=== PATIENT | male | born 1990 | race Caucasian/White ===

== ENCOUNTER 2019-09-21 13:20 | Day surgery (SDC) | payer MEDICAID ==
[2019-09-21] MEDS ORDERED: LIDOcaine 2% 5ml jelly ONE (13:58)
== END 2019-09-21 15:15 | disposition home or self-care (01) ==
LOC: WOUND CARE 13:20
PROVIDERS: ATTEND Nurse Practitioner
DX: E11.622 Type 2 diabetes mellitus with other skin ulcer (principal); L98.492 Non-pressure chronic ulcer of skin of other sites with fat layer exposed; L02.818 Cutaneous abscess of other sites
CPT/HCPCS: 36415; 36416; 82948; 83036; 97597; G0463

== ENCOUNTER 2019-09-25 10:55 | Day surgery (SDC) | payer MEDICAID ==
[2019-09-25] MEDS ORDERED: LIDOcaine 2% 5ml jelly ONE (12:29)
== END 2019-09-25 12:15 | disposition home or self-care (01) ==
LOC: WOUND CARE 10:55
PROVIDERS: ATTEND Nurse Practitioner Family
DX: E11.622 Type 2 diabetes mellitus with other skin ulcer (principal); L98.492 Non-pressure chronic ulcer of skin of other sites with fat layer exposed; L02.818 Cutaneous abscess of other sites
CPT/HCPCS: 36416; 82948; 93922; 93925; 97597

== ENCOUNTER 2019-10-02 10:25 | Day surgery (SDC) | payer MEDICAID ==
[2019-10-02] MEDS ORDERED: LIDOcaine 2% 5ml jelly ONE ×2 (11:00)
== END 2019-10-02 11:42 | disposition home or self-care (01) ==
LOC: WOUND CARE 10:25
PROVIDERS: ATTEND Nurse Practitioner
DX: E11.622 Type 2 diabetes mellitus with other skin ulcer (principal); L98.492 Non-pressure chronic ulcer of skin of other sites with fat layer exposed; L02.818 Cutaneous abscess of other sites
CPT/HCPCS: 36416; 82948; 97597

== ENCOUNTER 2019-10-09 10:34 | Day surgery (SDC) | payer MEDICAID ==
[2019-10-09] MEDS ORDERED: LIDOcaine 2% 5ml jelly ONE (11:06)
== END 2019-10-09 11:57 | disposition home or self-care (01) ==
LOC: WOUND CARE 10:34
PROVIDERS: ATTEND Nurse Practitioner Family
DX: E11.622 Type 2 diabetes mellitus with other skin ulcer (principal); L98.492 Non-pressure chronic ulcer of skin of other sites with fat layer exposed; Z90.49 Acquired absence of other specified parts of digestive tract; L02.818 Cutaneous abscess of other sites
CPT/HCPCS: 36416; 82948; 97597

== ENCOUNTER 2019-10-12 10:50 | Day surgery (SDC) | payer MEDICAID ==
[~2019-10-12 10:50] MED LIST: LIDOcaine 2% 5ml jelly ONE
[2019-10-12] MEDS ORDERED: LIDOcaine 2% 5ml jelly ONE (11:07)
== END 2019-10-12 12:01 | disposition home or self-care (01) ==
LOC: WOUND CARE 10:50
PROVIDERS: ATTEND Nurse Practitioner
DX: E11.622 Type 2 diabetes mellitus with other skin ulcer (principal); L98.492 Non-pressure chronic ulcer of skin of other sites with fat layer exposed; L02.818 Cutaneous abscess of other sites; Z87.891 Personal history of nicotine dependence
CPT/HCPCS: 36416; 73502; 82948; 97597

== ENCOUNTER 2019-10-19 11:24 | Day surgery (SDC) | payer MEDICAID ==
[2019-10-19] MEDS ORDERED: LIDOcaine 2% 5ml jelly ONE (11:50)
== END 2019-10-19 12:13 | disposition home or self-care (01) ==
LOC: WOUND CARE 11:24
PROVIDERS: ATTEND Nurse Practitioner
DX: E11.622 Type 2 diabetes mellitus with other skin ulcer (principal); L98.492 Non-pressure chronic ulcer of skin of other sites with fat layer exposed; L02.818 Cutaneous abscess of other sites; Z87.891 Personal history of nicotine dependence; Z90.49 Acquired absence of other specified parts of digestive tract
CPT/HCPCS: 97597

== ENCOUNTER 2019-10-24 11:00 | Day surgery (SDC) | payer MEDICAID ==
[2019-10-24] MEDS ORDERED: LIDOcaine 2% 5ml jelly ONE (11:49)
== END 2019-10-24 13:40 | disposition home or self-care (01) ==
LOC: WOUND CARE 11:00
PROVIDERS: ATTEND Nurse Practitioner
DX: E11.622 Type 2 diabetes mellitus with other skin ulcer (principal); L98.492 Non-pressure chronic ulcer of skin of other sites with fat layer exposed; L02.818 Cutaneous abscess of other sites; Z87.891 Personal history of nicotine dependence; Z90.49 Acquired absence of other specified parts of digestive tract
CPT/HCPCS: 36416; 82948; 97597

== ENCOUNTER 2019-11-02 11:07 | Day surgery (SDC) | payer MEDICAID ==
[2019-11-02] MEDS ORDERED: LIDOcaine 2% 5ml jelly ONE (11:38)
== END 2019-11-02 12:00 | disposition home or self-care (01) ==
LOC: WOUND CARE 11:07
PROVIDERS: ATTEND Nurse Practitioner
DX: E11.622 Type 2 diabetes mellitus with other skin ulcer (principal); L98.492 Non-pressure chronic ulcer of skin of other sites with fat layer exposed; L02.818 Cutaneous abscess of other sites; Z87.891 Personal history of nicotine dependence; Z90.49 Acquired absence of other specified parts of digestive tract
CPT/HCPCS: 97597

== ENCOUNTER 2019-11-09 11:05 | Day surgery (SDC) | payer MEDICAID ==
[2019-11-09] MEDS ORDERED: LIDOcaine 2% 5ml jelly ONE (12:03)
== END 2019-11-09 12:41 | disposition home or self-care (01) ==
LOC: WOUND CARE 11:05
PROVIDERS: ATTEND Nurse Practitioner
DX: E11.622 Type 2 diabetes mellitus with other skin ulcer (principal); L98.492 Non-pressure chronic ulcer of skin of other sites with fat layer exposed; L02.818 Cutaneous abscess of other sites; Z87.891 Personal history of nicotine dependence; Z90.49 Acquired absence of other specified parts of digestive tract
CPT/HCPCS: 36416; 82948; 97597

== ENCOUNTER 2019-11-23 13:30 | Day surgery (SDC) | payer MEDICAID ==
[2019-11-23] MEDS ORDERED: LIDOcaine 2% 5ml jelly ONE (13:46)
== END 2019-11-23 14:10 | disposition home or self-care (01) ==
LOC: WOUND CARE 13:30
PROVIDERS: ATTEND Nurse Practitioner
DX: E11.622 Type 2 diabetes mellitus with other skin ulcer (principal); L98.492 Non-pressure chronic ulcer of skin of other sites with fat layer exposed; L02.818 Cutaneous abscess of other sites; Z87.891 Personal history of nicotine dependence; Z90.49 Acquired absence of other specified parts of digestive tract
CPT/HCPCS: 97597

== ENCOUNTER 2019-12-14 11:00 | Day surgery (SDC) | payer MEDICAID ==
[2019-12-14] MEDS ORDERED: LIDOcaine 2% 5ml jelly ONE (12:00)
== END 2019-12-14 12:53 | disposition home or self-care (01) ==
LOC: WOUND CARE 11:00
PROVIDERS: ATTEND Nurse Practitioner
DX: E11.622 Type 2 diabetes mellitus with other skin ulcer (principal); L98.492 Non-pressure chronic ulcer of skin of other sites with fat layer exposed; L02.818 Cutaneous abscess of other sites; Z87.891 Personal history of nicotine dependence; Z90.49 Acquired absence of other specified parts of digestive tract
CPT/HCPCS: 36416; 82948; 97597

== ENCOUNTER 2019-12-21 11:14 | Day surgery (SDC) | payer MEDICAID ==
[2019-12-21] MEDS ORDERED: LIDOcaine 2% 5ml jelly ONE (13:01)
== END 2019-12-21 13:21 | disposition home or self-care (01) ==
LOC: WOUND CARE 11:14
PROVIDERS: ATTEND Nurse Practitioner
DX: E11.622 Type 2 diabetes mellitus with other skin ulcer (principal); L98.492 Non-pressure chronic ulcer of skin of other sites with fat layer exposed; L02.818 Cutaneous abscess of other sites; Z87.891 Personal history of nicotine dependence; Z90.49 Acquired absence of other specified parts of digestive tract
CPT/HCPCS: 36416; 82948; 97597

== ENCOUNTER 2019-12-28 10:40 | Day surgery (SDC) | payer MEDICAID ==
[2019-12-28] MEDS ORDERED: LIDOcaine 2% 5ml jelly ONE (11:11)
== END 2019-12-28 11:31 | disposition home or self-care (01) ==
LOC: WOUND CARE 10:40
PROVIDERS: ATTEND Nurse Practitioner
DX: E11.622 Type 2 diabetes mellitus with other skin ulcer (principal); L98.492 Non-pressure chronic ulcer of skin of other sites with fat layer exposed; L02.818 Cutaneous abscess of other sites; Z87.891 Personal history of nicotine dependence; Z90.49 Acquired absence of other specified parts of digestive tract
CPT/HCPCS: 82948; 97597

== ENCOUNTER 2020-01-04 11:32 | Day surgery (SDC) | payer MEDICAID ==
[2020-01-04] MEDS ORDERED: LIDOcaine 2% 5ml jelly ONE (12:27)
== END 2020-01-04 13:41 | disposition home or self-care (01) ==
LOC: WOUND CARE 11:32
PROVIDERS: ATTEND Nurse Practitioner
DX: E11.622 Type 2 diabetes mellitus with other skin ulcer (principal); L98.492 Non-pressure chronic ulcer of skin of other sites with fat layer exposed; L02.818 Cutaneous abscess of other sites; Z87.891 Personal history of nicotine dependence; Z90.49 Acquired absence of other specified parts of digestive tract
CPT/HCPCS: 36416; 82948; 97597

== ENCOUNTER 2020-01-11 11:40 | Day surgery (SDC) | payer MEDICAID ==
[2020-01-11] MEDS ORDERED: LIDOcaine 2% 5ml jelly ONE (12:58)
[2020-01-11] MEDS ORDERED: dextrose ORAL solution 15 GM/59 ML bottle ONE (13:09)
== END 2020-01-11 13:39 | disposition home or self-care (01) ==
LOC: WOUND CARE 11:40
PROVIDERS: ATTEND Nurse Practitioner
DX: E11.622 Type 2 diabetes mellitus with other skin ulcer (principal); L98.492 Non-pressure chronic ulcer of skin of other sites with fat layer exposed; L02.818 Cutaneous abscess of other sites; Z87.891 Personal history of nicotine dependence; Z90.49 Acquired absence of other specified parts of digestive tract
CPT/HCPCS: 36416; 82948; 97597

== ENCOUNTER 2020-01-16 11:02 | Day surgery (SDC) | payer MEDICAID ==
[2020-01-16] MEDS ORDERED: LIDOcaine 2% 5ml jelly ONE (11:38)
== END 2020-01-16 12:44 | disposition home or self-care (01) ==
LOC: WOUND CARE 11:02
PROVIDERS: ATTEND Nurse Practitioner
DX: S71.001D Unspecified open wound, right hip, subsequent encounter (principal); E11.622 Type 2 diabetes mellitus with other skin ulcer; L98.492 Non-pressure chronic ulcer of skin of other sites with fat layer exposed; L02.818 Cutaneous abscess of other sites; Z87.891 Personal history of nicotine dependence; Z90.49 Acquired absence of other specified parts of digestive tract; X58.XXXD Exposure to other specified factors, subsequent encounter
CPT/HCPCS: 36416; 82948; 97597

== ENCOUNTER 2020-01-30 11:43 | Day surgery (SDC) | payer MEDICAID ==
[2020-01-30] MEDS ORDERED: dextrose ORAL solution 15 GM/59 ML bottle ONE ×2 (12:02→12:23)
[2020-01-30] MEDS ORDERED: LIDOcaine 2% 5ml jelly ONE (12:09)
== END 2020-01-30 13:23 | disposition home or self-care (01) ==
LOC: WOUND CARE 11:43
PROVIDERS: ATTEND Nurse Practitioner
DX: S71.001D Unspecified open wound, right hip, subsequent encounter (principal); E11.622 Type 2 diabetes mellitus with other skin ulcer; L98.492 Non-pressure chronic ulcer of skin of other sites with fat layer exposed; L02.818 Cutaneous abscess of other sites; Z87.891 Personal history of nicotine dependence; Z90.49 Acquired absence of other specified parts of digestive tract; X58.XXXD Exposure to other specified factors, subsequent encounter
CPT/HCPCS: 36416; 82948; 97597

== ENCOUNTER 2020-02-06 11:40 | Day surgery (SDC) | payer MEDICAID ==
[2020-02-06] MEDS ORDERED: LIDOcaine 2% 5ml jelly ONE (11:56)
== END 2020-02-06 12:25 | disposition home or self-care (01) ==
LOC: WOUND CARE 11:40
PROVIDERS: ATTEND Nurse Practitioner
DX: S71.001D Unspecified open wound, right hip, subsequent encounter (principal); E11.622 Type 2 diabetes mellitus with other skin ulcer; L98.492 Non-pressure chronic ulcer of skin of other sites with fat layer exposed; L02.818 Cutaneous abscess of other sites; Z87.891 Personal history of nicotine dependence; Z90.49 Acquired absence of other specified parts of digestive tract; X58.XXXD Exposure to other specified factors, subsequent encounter
CPT/HCPCS: 36416; 82948; 97597

== ENCOUNTER 2020-02-13 11:23 | Outpatient (CLI) | payer MEDICAID ==
[2020-02-13] MEDS ORDERED: LIDOcaine 2% 5ml jelly ONE (11:56)
== END 2020-02-13 23:59 | disposition home or self-care (01) ==
LOC: WOUND CARE 11:23
PROVIDERS: ATTEND Nurse Practitioner
DX: S71.001D Unspecified open wound, right hip, subsequent encounter (principal); E11.622 Type 2 diabetes mellitus with other skin ulcer; L98.492 Non-pressure chronic ulcer of skin of other sites with fat layer exposed; L02.818 Cutaneous abscess of other sites; Z87.891 Personal history of nicotine dependence; Z90.49 Acquired absence of other specified parts of digestive tract; X58.XXXD Exposure to other specified factors, subsequent encounter
CPT/HCPCS: 36416; 97597

== ENCOUNTER 2020-02-20 10:55 | Outpatient (CLI) | payer MEDICAID ==
[2020-02-20] MEDS ORDERED: LIDOcaine 2% 5ml jelly ONE (11:19)
== END 2020-02-20 23:59 | disposition home or self-care (01) ==
LOC: WOUND CARE 10:55 → EDSTATUS 11:00 → WOUND CARE 23:59
PROVIDERS: ATTEND Nurse Practitioner
DX: S71.001D Unspecified open wound, right hip, subsequent encounter (principal); E11.622 Type 2 diabetes mellitus with other skin ulcer; L98.492 Non-pressure chronic ulcer of skin of other sites with fat layer exposed; L02.818 Cutaneous abscess of other sites; Z87.891 Personal history of nicotine dependence; Z90.49 Acquired absence of other specified parts of digestive tract; X58.XXXD Exposure to other specified factors, subsequent encounter
CPT/HCPCS: 11042

== ENCOUNTER 2020-02-27 11:14 | Outpatient (CLI) | payer MEDICAID ==
[2020-02-27] MEDS ORDERED: LIDOcaine 2% 5ml jelly ONE (11:42)
== END 2020-02-27 23:59 | disposition home or self-care (01) ==
LOC: WOUND CARE 11:14
PROVIDERS: ATTEND Nurse Practitioner
DX: S71.001D Unspecified open wound, right hip, subsequent encounter (principal); E11.622 Type 2 diabetes mellitus with other skin ulcer; L98.492 Non-pressure chronic ulcer of skin of other sites with fat layer exposed; L02.818 Cutaneous abscess of other sites; Z87.891 Personal history of nicotine dependence; Z90.49 Acquired absence of other specified parts of digestive tract; X58.XXXD Exposure to other specified factors, subsequent encounter
CPT/HCPCS: 11042; 36416; 82948

== ENCOUNTER 2020-03-05 10:54 | Outpatient (CLI) | payer MEDICAID ==
[2020-03-05] MEDS ORDERED: LIDOcaine 2% 5ml jelly ONE (11:12)
[2020-03-26] MEDS ORDERED: INSU100I31 SQ (14:27)
[2020-03-26] MEDS ORDERED: INSU100V30 SQ (14:27)
[2020-03-26] MEDS ORDERED: LANTUS SQ (14:28)
== END 2020-03-05 23:59 | disposition home or self-care (01) ==
LOC: WOUND CARE 10:54 → EDSTATUS 11:00 → WOUND CARE 23:59
PROVIDERS: ATTEND Nurse Practitioner
DX: S71.001D Unspecified open wound, right hip, subsequent encounter (principal); E11.622 Type 2 diabetes mellitus with other skin ulcer; L98.492 Non-pressure chronic ulcer of skin of other sites with fat layer exposed; L02.818 Cutaneous abscess of other sites; Z87.891 Personal history of nicotine dependence; Z90.49 Acquired absence of other specified parts of digestive tract; X58.XXXD Exposure to other specified factors, subsequent encounter
CPT/HCPCS: 11042; 36416; 82948

== ENCOUNTER 2020-03-12 10:58 | Outpatient (CLI) | payer MEDICAID ==
[2020-03-12] MEDS ORDERED: LIDOcaine 2% 5ml jelly ONE (11:06)
[2020-03-26] MEDS ORDERED: INSU100V30 SQ (14:27)
[2020-03-26] MEDS ORDERED: INSU100I31 SQ (14:27)
[2020-03-26] MEDS ORDERED: LANTUS SQ (14:28)
== END 2020-03-12 23:59 | disposition home or self-care (01) ==
LOC: WOUND CARE 10:58 → EDSTATUS 11:00 → WOUND CARE 23:59
PROVIDERS: ATTEND Nurse Practitioner
DX: S71.001D Unspecified open wound, right hip, subsequent encounter (principal); E11.622 Type 2 diabetes mellitus with other skin ulcer; L98.492 Non-pressure chronic ulcer of skin of other sites with fat layer exposed; L02.818 Cutaneous abscess of other sites; Z87.891 Personal history of nicotine dependence; Z90.49 Acquired absence of other specified parts of digestive tract; X58.XXXD Exposure to other specified factors, subsequent encounter
CPT/HCPCS: 11042

== ENCOUNTER 2020-03-19 10:55 | Outpatient (CLI) | payer MEDICAID ==
[2020-03-19] MEDS ORDERED: LIDOcaine 2% 5ml jelly ONE (12:05)
[2020-03-19 12:52] LABS: BASOPHILS % (AUTO) 0.7 % (0-1); EOSINOPHILS # (AUTO) 0.3 X10'3 (0-0.9); EOSINOPHILS % (AUTO) 5.6 % (0-6); LYMPHOCYTES # (AUTO) 2.2 X10'3 (1.1-4.8); MEAN CORPUSCULAR HEMOGLOBIN 30.2 PG (27.0-31.0); MEAN CORPUSCULAR HGB CONC 33.4 g/dL (33.0-36.5); MEAN CORPUSCULAR VOLUME 90.5 FL (78-98); MEAN PLATELET VOLUME 8.5 FL (7.4-10.4); MONOCYTES # (AUTO) 0.7 X10'3 (0-0.9); NEUTROPHILS # (AUTO) 2.9 X10'3 (1.8-7.7); NEUTROPHILS % (AUTO) 46.7 % (42-75); PRE OP HEMATOCRIT 38.2 % (42.0-52.0); PRE OP HEMOGLOBIN 12.8 g/dL (14.0-17.9); PRE OP PLATELET COUNT 259 X10'3 (140-440); RED BLOOD COUNT 4.22 X10'6 (4.70-6.10); RED CELL DISTRIBUTION WIDTH 13.2 % (11.5-14.5)
[2020-03-19 13:04] LABS: ALBUMIN 2.8 G/DL (3.4-5.0); ALBUMIN/GLOBULIN RATIO 0.8 (1.1-1.5); ALKALINE PHOSPHATASE 172 IU/L (46-116); BLOOD UREA NITROGEN 15 MG/DL (7-18); BUN/CREATININE RATIO 26.8 (5.4-32.0); C-REACTIVE PROTEIN 0.07 MG/DL (0.0-0.5); CALCIUM 8.3 MG/DL (8.5-10.1); CHLORIDE 108 MMOL/L (99-107); CREATININE 0.56 MG/DL (0.60-1.10); PRE OP ALT 49 U/L (30-65); PRE OP ANION GAP 4 (8-16); PRE OP AST 27 U/L (10-37); PRE OP BILIRUB, TOTAL 0.3 MG/DL (0.0-1.0); PRE OP GLUCOSE 94 MG/DL (70-104); PRE OP POTASSIUM 4.3 MMOL/L (3.4-5.1); PRE OP SODIUM 142 MMOL/L (135-145); TOTAL CARBON DIOXIDE 29.9 MMOL/L (24-32); TOTAL PROTEIN 6.2 G/DL (6.4-8.2); eGFR > 90 ML/MIN
[2020-03-26] MEDS ORDERED: INSU100I31 SQ (14:27)
[2020-03-26] MEDS ORDERED: INSU100V30 SQ (14:27)
[2020-03-26] MEDS ORDERED: LANTUS SQ (14:28)
== END 2020-03-19 23:59 | disposition home or self-care (01) ==
LOC: WOUND CARE 10:55
PROVIDERS: ATTEND Nurse Practitioner
DX: S71.001D Unspecified open wound, right hip, subsequent encounter (principal); E11.622 Type 2 diabetes mellitus with other skin ulcer; L98.492 Non-pressure chronic ulcer of skin of other sites with fat layer exposed; L02.818 Cutaneous abscess of other sites; Z87.891 Personal history of nicotine dependence; Z90.49 Acquired absence of other specified parts of digestive tract; X58.XXXD Exposure to other specified factors, subsequent encounter
CPT/HCPCS: 11042; 36415; 80053; 82948; 85025; 85651; 86140; 87635; 93005

== ENCOUNTER 2020-03-29 12:44 | Outpatient (CLI) | payer MEDICAID ==
[~2020-03-29 12:44] MED LIST changes: +INSU100V30 SQ; +LANTUS SQ; -LIDOcaine 2% 5ml jelly ONE
[2020-03-29] MEDS ORDERED: LIDOcaine 2% 5ml jelly ONE (13:23)
== END 2020-03-29 23:59 | disposition home or self-care (01) ==
LOC: WOUND CARE 12:44
PROVIDERS: ATTEND Nurse Practitioner
DX: T81.89XA Other complications of procedures, not elsewhere classified, initial encounter (principal); E11.622 Type 2 diabetes mellitus with other skin ulcer; L98.492 Non-pressure chronic ulcer of skin of other sites with fat layer exposed; L02.818 Cutaneous abscess of other sites; Z90.49 Acquired absence of other specified parts of digestive tract; Z79.4 Long term (current) use of insulin; Z87.891 Personal history of nicotine dependence; Z79.899 Other long term (current) drug therapy; Z98.890 Other specified postprocedural states; Y83.8 Other surgical procedures as the cause of abnormal reaction of the patient, or of later complication, without mention of misadventure at the time of the procedure; Y92.238 Other place in hospital as the place of occurrence of the external cause
CPT/HCPCS: 11043; 36416; 82948; 97605

== ENCOUNTER 2020-04-01 11:36 | Outpatient (CLI) | payer MEDICAID ==
[2020-04-01] MEDS ORDERED: LIDOcaine 2% 5ml jelly ONE ×2 (12:44→12:59)
== END 2020-04-01 23:59 | disposition home or self-care (01) ==
LOC: WOUND CARE 11:36
PROVIDERS: ATTEND Nurse Practitioner Family
DX: T81.89XD Other complications of procedures, not elsewhere classified, subsequent encounter (principal); E11.622 Type 2 diabetes mellitus with other skin ulcer; L98.492 Non-pressure chronic ulcer of skin of other sites with fat layer exposed; L02.818 Cutaneous abscess of other sites; Z87.891 Personal history of nicotine dependence; Z90.49 Acquired absence of other specified parts of digestive tract; Z79.899 Other long term (current) drug therapy; X58.XXXD Exposure to other specified factors, subsequent encounter; Y83.8 Other surgical procedures as the cause of abnormal reaction of the patient, or of later complication, without mention of misadventure at the time of the procedure
CPT/HCPCS: 36416; 82948; 97597

== ENCOUNTER 2020-04-08 11:58 | Outpatient (CLI) | payer MEDICAID ==
[2020-04-08] MEDS ORDERED: LIDOcaine 2% 5ml jelly ONE (12:41)
== END 2020-04-08 23:59 | disposition home or self-care (01) ==
LOC: WOUND CARE 11:58
PROVIDERS: ATTEND Nurse Practitioner Family
DX: T81.89XD Other complications of procedures, not elsewhere classified, subsequent encounter (principal); S71.001D Unspecified open wound, right hip, subsequent encounter; E11.622 Type 2 diabetes mellitus with other skin ulcer; L98.492 Non-pressure chronic ulcer of skin of other sites with fat layer exposed; L02.818 Cutaneous abscess of other sites; Z87.891 Personal history of nicotine dependence; Z90.49 Acquired absence of other specified parts of digestive tract; X58.XXXD Exposure to other specified factors, subsequent encounter
CPT/HCPCS: 97597

== ENCOUNTER 2020-04-15 11:47 | Outpatient (CLI) | payer MEDICAID ==
[2020-04-15] MEDS ORDERED: LIDOcaine 2% 5ml jelly ONE (13:32)
== END 2020-04-15 23:59 | disposition home or self-care (01) ==
LOC: WOUND CARE 11:47
PROVIDERS: ATTEND Nurse Practitioner
DX: T81.89XD Other complications of procedures, not elsewhere classified, subsequent encounter (principal); E11.622 Type 2 diabetes mellitus with other skin ulcer; L98.492 Non-pressure chronic ulcer of skin of other sites with fat layer exposed; L02.818 Cutaneous abscess of other sites; Z87.891 Personal history of nicotine dependence; Z90.49 Acquired absence of other specified parts of digestive tract; Z79.899 Other long term (current) drug therapy; Z79.4 Long term (current) use of insulin; Z98.890 Other specified postprocedural states; Y83.8 Other surgical procedures as the cause of abnormal reaction of the patient, or of later complication, without mention of misadventure at the time of the procedure
CPT/HCPCS: 82948; G0463

== ENCOUNTER 2020-04-22 12:14 | Outpatient (CLI) | payer MEDICAID ==
[2020-04-22] MEDS ORDERED: LIDOcaine 2% 5ml jelly ONE (12:39)
== END 2020-04-22 23:59 | disposition home or self-care (01) ==
LOC: WOUND CARE 12:14
PROVIDERS: ATTEND Nurse Practitioner Family
DX: T81.89XD Other complications of procedures, not elsewhere classified, subsequent encounter (principal); E11.622 Type 2 diabetes mellitus with other skin ulcer; L98.492 Non-pressure chronic ulcer of skin of other sites with fat layer exposed; L02.818 Cutaneous abscess of other sites; Z87.891 Personal history of nicotine dependence; Z90.49 Acquired absence of other specified parts of digestive tract; Z79.899 Other long term (current) drug therapy; Z79.4 Long term (current) use of insulin; Z98.890 Other specified postprocedural states; Y83.8 Other surgical procedures as the cause of abnormal reaction of the patient, or of later complication, without mention of misadventure at the time of the procedure
CPT/HCPCS: G0463

== ENCOUNTER 2020-04-29 12:17 | Outpatient (CLI) | payer MEDICAID | END 2020-04-29 23:59 | disposition home or self-care (01) | LOC: WOUND CARE 12:17 | PROVIDERS: ATTEND Nurse Practitioner Family | DX: T81.89XD Other complications of procedures, not elsewhere classified, subsequent encounter (principal); E11.622 Type 2 diabetes mellitus with other skin ulcer; L98.492 Non-pressure chronic ulcer of skin of other sites with fat layer exposed; L02.818 Cutaneous abscess of other sites; Z87.891 Personal history of nicotine dependence; Z90.49 Acquired absence of other specified parts of digestive tract; Z79.899 Other long term (current) drug therapy; Z79.4 Long term (current) use of insulin; Z98.890 Other specified postprocedural states; Y83.8 Other surgical procedures as the cause of abnormal reaction of the patient, or of later complication, without mention of misadventure at the time of the procedure | CPT/HCPCS: G0463 ==